=== PATIENT | male | born 1945 | race Caucasian/White ===

== ENCOUNTER 2021-02-04 11:39 | Outpatient (REF) | payer MEDICARE, OTHER, SELFPAY ==
[2021-02-04 13:59] LABS: MANUAL DIFF FLAG NO
[2021-02-04 14:12] LABS: Basophils Percent Auto 0.4 % (0-2); Eosinophils Absolute Auto 0.2 X10*3/uL (0.0-0.4); Hematocrit 36.1 % (42-52); Hemoglobin 11.5 g/dl (14.0-18.0); Imm Gran Abs Auto 0.07 X10*3/uL (0.00-0.03); Imm Gran Pct Auto 0.8 % (0.0-0.4); Lymphocytes Absolute Auto 3.3 X10*3/uL (1.2-4.9); Mean Corpuscular HGB Conc 31.9 g/dl (31.0-36.0); Mean Corpuscular Volume 97.3 fL (80-98); Monocytes Absolute Auto 0.5 X10*3/uL (0.1-1.2); Monocytes Percent Auto 5.4 % (2-11); Neutrophils Absolute Auto 4.4 X10*3/uL (2.0-8.3); Neutrophils Percent Auto 52.4 % (45-73); Platelet Count 231 X10*3/uL (160-400); Red Blood Count 3.71 X10*6/uL (4.60-5.80); Red Cell Distribution Width 14.5 % (11.0-16.0); White Blood Count 8.3 X10*3/uL (4.8-10.8)
[2021-02-04 14:41] LABS: Alanine Aminotransferase 17 U/L (0-40); Albumin Level 4.2 g/dL (3.5-5.0); Alkaline Phosphatase 52 U/L (39-117); Anion Gap 15 (12-20); Aspartate Amino Transferase 17 U/L (5-37); Bilirubin Total 0.3 mg/dL (0.0-1.0); Blood Urea Nitrogen 39 mg/dL (9-16); Calcium 8.5 mg/dL (8.4-10.2); Carbon Dioxide 18 mmol/L (22-29); Chloride 107 mmol/L (96-108); Estimated Glomerular Filt Rate 23; Glucose Random 158 mg/dL (60-115); Phosphorus 4.2 mg/dL (2.7-4.5); Potassium 5.4 mmol/L (3.3-5.1); Sodium 135 mmol/L (135-145); Total Protein 6.5 g/dL (6.5-8.0)
[2021-02-04 14:44] LABS: Glucose Urine UA 100 MG/DL (NEG); Leukocyte Esterase Urine 3+ (NEG); Nitrite Urine POS (NEG); PH 5.5 (5.0-8.0); Urine Blood TRACE (NEG); Urine Ketones NEG (NEG); Urine Protein NEG (NEG-TRACE)
[2021-02-04 14:48] LABS: Appearance Urine HAZY; Color Urine YELLOW
[2021-02-04 14:51] LABS: Total Protein Urine Random 19 mg/dL (<12)
[2021-02-04 15:23] LABS: Bacteria Urine 3+ /LPF; Renal Epithelial Cells Urine TRACE /LPF; Squamous Epithelial Cell Urine TRACE /LPF
[2021-02-05 11:26] LABS: Calcium (PTHI) 8.7 mg/dL (8.6-10.3); PTHI 70 pg/mL (14-64)
== END 2021-02-04 11:40 | disposition home or self-care (01) ==
LOC: HO.10HDL 11:39
PROVIDERS: Visit Provider Internal Medicine Hypertension Specialist
DX: N17.9 Acute kidney failure, unspecified (principal)
CPT/HCPCS: 36415; 80053; 81001; 83970; 84100; 84156; 85025

== ENCOUNTER 2023-09-11 13:23 | Outpatient (AMB) | payer MEDICARE, OTHER, SELFPAY ==
[2023-09-11 13:31] VITALS: BP 120/60; PULSE 45; O2SAT 98; BMI 26.4
--- NOTE | 2023-09-11 13:31 | HO.NEPHOV ---
HPI HPI Comments History of Present Illness Details Ronnie is 6-year-old man with history of stage 3 chronic kidney disease in the setting of atonic bladder requiring self catheterization for more than 8 years. In December of 2020 he sustained acute kidney injury with hyperkalemia. He was seen in follow-up for the same. Under time he was taking NSAIDs and after discontinuing NSAIDs the renal function improved with a baseline creatinine 1.6 mg/dL. Few weeks ago he had low heart rate and the labetalol was decreased from 200 mg b.i.d. down to 100 mg b.i.d.. Today he has no new complaints. Has a history of hematuria he was evaluated by Urology in [facility]. [facility] Medical History (Updated 09/11/23 @ 14:30 by Isael Guzman MD) Retinal detachment Urinary tract infection Sleep apnea Pulmonary embolism Hyperlipidemia Osteoarthrosis BPH w/o urinary obs/LUTS Hx of pulmonary embolus Glaucoma Essential hypertension Esophageal reflux Dysthymia Diabetes mellitus without complication, without long-term current use of insulin Depression Chronic kidney disease (CKD) Cataract Asthma Anxiety Anemia Surgical History (Updated 12/07/22 @ 11:45 by Ingrid Oseguera) History of total hip arthroplasty H/O hernia repair Vital Signs 09/11/23 13:31 Height 5 ft 10 in Weight 184 lb BMI 26.4 BP 120/60 Blood Pressure Location Rt brachial Position Sitting Pulse 45 L Pulse Source Pulse Oximeter Pulse Oximetry (%) 98 Oxygen Delivery Method Room Air Physical Exam Vital Signs: Last Vital Signs Pulse 45 L 09/11/23 13:31 BP 120/60 09/11/23 13:31 Pulse Ox 98 09/11/23 13:31 Oxygen Delivery Method Room Air 09/11/23 13:31 BMI result Body Mass Index 26.4 Const General: comfortable Nutritional Appearance: well nourished Orientation/consciousness: patient oriented x3 HEENT Head: No normal to inspection Mouth: moist mucous membranes Neck Neck: Yes supple and Yes no JVD Resp Auscultation: clear to auscultation bilaterally, no rales and rub present Cardio Jugular venous distension: no JVD Palpation: no palpable S3 and no palpable S4 Heart sounds: no rubs GI Palpation (GI): Soft to palpation and nontender Percussion: No Fluid wave present General: Yes no CVA tenderness Back/Spine/Pelvis Back: no CVA tenderness Skin General skin exam: no rashes or lesions noted Neuro General: patient oriented x3 Extrem General: Yes no pedal edema and No clubbing Results Reviewed Results Reviewed: All the labs were reviewed Assessment & Plan Assessment & Plan (1) Chronic kidney disease (CKD): Code(s): N18.9 - Chronic kidney disease, unspecified Plan: Ronnie has stage IV CKD. He has history of atonic bladder requiring self catheterization. Goal is to slow the progression of renal disease He should catheterize at least 3-4 times daily and avoid urinary retention. Continue to avoid nephrotoxic agents including NSAIDs. Will monitor renal function closely. (2) Edema: Code(s): R60.9 - Edema, unspecified Plan: Most likely due to the use of calcium channel blockers. Fluid status seems acceptable. He is on Lasix and we will continue the same. Again we discussed low-salt diet and he can keep his feet elevated while at rest. (3) Anemia: Code(s): D64.9 - Anemia, unspecified Plan: Due to underlying CKD. No absolute indication for Epogen Will follow hemoglobin and initiate Epogen as indicated. (4) Essential hypertension: Code(s): I10 - Essential (primary) hypertension Plan: Blood pressure is rather well controlled. He has bradycardia. Therefore I will stop labetalol 100 mg b.i.d.. Watch blood pressure and if systolic blood pressure stays above 140 mm I will consider increasing amlodipine or add a different agent. (5) Hyperkalemia: Code(s): E87.5 - Hyperkalemia Plan History of hyperkalemia in the setting of CKD and a unit retention. Recheck potassium again today. Stay on low-potassium diet. If potassium increases more than 5.6 I would add [facility] Orders: Orders Electrolytes Today D64.9 - Anemia, unspecified, N18.9 - Chronic kidney disease, unspecified Blood Urea Nitrogen Today D64.9 - Anemia, unspecified, N18.9 - Chronic kidney disease, unspecified Calcium Today D64.9 - Anemia, unspecified, N18.9 - Chronic kidney disease, unspecified PTHI Today D64.9 - Anemia, unspecified, N18.9 - Chronic kidney disease, unspecified Creatinine Today D64.9 - Anemia, unspecified, N18.9 - Chronic kidney disease, unspecified Complete Blood Count no Diff Today D64.9 - Anemia, unspecified, N18.9 - Chronic kidney disease, unspecified Coding Level of Care Code Est Pt Level 4 (05461) Diagnoses Chronic kidney disease (CKD) N18.9 Edema R60.9 Anemia D64.9 Essential hypertension I10 Hyperkalemia E87.5
== END 2023-09-11 13:48 | disposition home or self-care (01) ==
PROVIDERS: PCP Physician Assistant; Visit Provider Internal Medicine Hypertension Specialist
DX: I12.9 Hypertensive chronic kidney disease with stage 1 through stage 4 chronic kidney disease, or unspecified chronic kidney disease (principal); N18.4 Chronic kidney disease, stage 4 (severe); D63.1 Anemia in chronic kidney disease; E87.5 Hyperkalemia; R60.9 Edema, unspecified; R00.1 Bradycardia, unspecified
CPT/HCPCS: 99214

== ENCOUNTER → 2023-09-11 13:23 | Outpatient (BNVA) | payer MEDICARE, OTHER, SELFPAY | PROVIDERS: PCP Physician Assistant; Visit Provider Internal Medicine Hypertension Specialist | DX: I12.9 Hypertensive chronic kidney disease with stage 1 through stage 4 chronic kidney disease, or unspecified chronic kidney disease (principal); N18.9 Chronic kidney disease, unspecified; R60.9 Edema, unspecified; D64.9 Anemia, unspecified; E78.5 Hyperlipidemia, unspecified | CPT/HCPCS: 99212 ==

== ENCOUNTER 2023-11-06 13:03 | Outpatient (AMB) | payer MEDICARE, OTHER, SELFPAY ==
[2023-11-06 13:09] VITALS: BP 122/64; PULSE 41; O2SAT 98; BMI 26.5
--- NOTE | 2023-11-06 13:09 | HO.NEPHOV ---
HPI HPI Comments History of Present Illness Details Ronnie is 6-year-old man with history of stage 3 chronic kidney disease in the setting of atonic bladder requiring self catheterization for more than 8 years. In December of 2020 he sustained acute kidney injury with hyperkalemia. He was seen in follow-up for the same. Under time he was taking NSAIDs and after discontinuing NSAIDs the renal function improved with a baseline creatinine 1.6 mg/dL. Few weeks ago he had low heart rate and the labetalol was decreased from 200 mg b.i.d. down to 100 mg b.i.d.. Today he has no new complaints. Has a history of hematuria he was evaluated by Urology in [facility]. [facility] Medical History Retinal detachment Urinary tract infection Sleep apnea Pulmonary embolism Hyperlipidemia Osteoarthrosis BPH w/o urinary obs/LUTS Hx of pulmonary embolus Glaucoma Essential hypertension Esophageal reflux Dysthymia Diabetes mellitus without complication, without long-term current use of insulin Depression Chronic kidney disease (CKD) Cataract Asthma Anxiety Anemia Surgical History History of total hip arthroplasty H/O hernia repair Vital Signs 11/06/23 13:09 Height 5 ft 10 in Weight 185 lb BMI 26.5 BP 122/64 Blood Pressure Location Lt brachial Position Sitting Pulse 41 L Pulse Source Pulse Oximeter Pulse Oximetry (%) 98 Oxygen Delivery Method Room Air Intake Medication List - Last Reconciled 11/06/23 by Isael Guzman MD acetaminophen-codeine 300-30 mg tabs PO alprazolam 0.5 - 1 mg PO DAILY PRN amlodipine 5 mg PO DAILY blood sugar diagnostic (FreeStyle Lite Strips) As directed dorzolamide-timolol 22.3-6.8 mg/mL ophthalmic (eye) escitalopram oxalate 10 mg PO DAILY famotidine 20 mg PO DAILY furosemide 20 mg PO DAILY gabapentin mg PO glyburide 10 mg PO BID metformin 1,000 mg PO BID simvastatin 40 mg PO BEDTIME tamsulosin 0.4 mg PO DAILY trazodone 150 mg PO BEDTIME warfarin 0.5 - 1.5 mg PO DAILY Physical Exam Vital Signs: Last Vital Signs Pulse 41 L 11/06/23 13:09 BP 122/64 11/06/23 13:09 Pulse Ox 98 11/06/23 13:09 Oxygen Delivery Method Room Air 11/06/23 13:09 BMI result Body Mass Index 26.5 Const General: comfortable Nutritional Appearance: well nourished Orientation/consciousness: patient oriented x3 HEENT Head: No normal to inspection Mouth: moist mucous membranes Neck Neck: Yes supple and Yes no JVD Resp Auscultation: clear to auscultation bilaterally, no rales and rub present Cardio Jugular venous distension: no JVD Palpation: no palpable S3 and no palpable S4 Heart sounds: no rubs GI Palpation (GI): Soft to palpation and nontender Percussion: No Fluid wave present General: Yes no CVA tenderness Back/Spine/Pelvis Back: no CVA tenderness Skin General skin exam: no rashes or lesions noted Neuro General: patient oriented x3 Extrem General: No clubbing Right upper extremity: edema Assessment & Plan Assessment & Plan (1) Hyperkalemia: Code(s): E87.5 - Hyperkalemia (2) Chronic kidney disease (CKD): Code(s): N18.9 - Chronic kidney disease, unspecified Plan: Ronnie has stage IV CKD. He has history of atonic bladder requiring self catheterization. Goal is to slow the progression of renal disease He should catheterize at least 3-4 times daily and avoid urinary retention. Continue to avoid nephrotoxic agents including NSAIDs. Will monitor renal function closely. (3) Essential hypertension: Code(s): I10 - Essential (primary) hypertension Plan: Blood pressure is rather well controlled. He has bradycardia. Therefore I stopped labetalol 100 mg b.i.d. in Aug 2023 Watch blood pressure and if systolic blood pressure stays above 140 mm I will consider increasing amlodipine or add a different agent. (4) Edema: Code(s): R60.9 - Edema, unspecified Plan: Most likely due to the use of calcium channel blockers. Fluid status seems acceptable. He is on Lasix and we will continue the same. Again we discussed low-salt diet and he can keep his feet elevated while at rest. (5) Anemia: Code(s): D64.9 - Anemia, unspecified Plan: Due to underlying CKD. No absolute indication for Epogen Will follow hemoglobin and initiate Epogen as indicated. Plan History of hyperkalemia in the setting of CKD and a unit retention. Recheck potassium again today. Stay on low-potassium diet. If potassium increases more than 5.6 I would add [facility] Orders: Orders Electrolytes 4 Months E87.5 - Hyperkalemia, N18.9 - Chronic kidney disease, unspecified Blood Urea Nitrogen 4 Months E87.5 - Hyperkalemia, N18.9 - Chronic kidney disease, unspecified Creatinine 4 Months E87.5 - Hyperkalemia, N18.9 - Chronic kidney disease, unspecified Calcium 4 Months E87.5 - Hyperkalemia, N18.9 - Chronic kidney disease, unspecified Coding Level of Care Code Est Pt Level 4 (48226) Diagnoses Hyperkalemia E87.5 Chronic kidney disease (CKD) N18.9 Essential hypertension I10 Edema R60.9 Anemia D64.9 Results Reviewed Results Reviewed: Aug K 4.4 Cr 1.2 Nephrology Results: Hgb 11.5 g/dl (14.0-18.0) L 02/04/21 WBC 8.3 X10*3/uL (4.8-10.8) 02/04/21 Plt Count 231 X10*3/uL (160-400) 02/04/21 Sodium 135 mmol/L (135-145) 02/04/21 Potassium 5.4 mmol/L (3.3-5.1) H 02/04/21 Chloride 107 mmol/L (96-108) 02/04/21 Carbon Dioxide 18 mmol/L (22-29) L 02/04/21 BUN 39 mg/dL (9-16) H 02/04/21 Creatinine 2.67 mg/dL (0.5-1.4) H 02/04/21 Calcium 8.5 mg/dL (8.4-10.2) 02/04/21 Phosphorus 4.2 mg/dL (2.7-4.5) 02/04/21 PTH Intact 70 pg/mL (14-64) H 02/04/21 Urine Protein NEG MG/DL (NEG-TRACE) 02/04/21
== END 2023-11-06 13:28 | disposition home or self-care (01) ==
PROVIDERS: PCP Physician Assistant; Visit Provider Internal Medicine Hypertension Specialist
DX: E87.5 Hyperkalemia (principal); I12.9 Hypertensive chronic kidney disease with stage 1 through stage 4 chronic kidney disease, or unspecified chronic kidney disease; N18.9 Chronic kidney disease, unspecified; R60.9 Edema, unspecified; D64.9 Anemia, unspecified
CPT/HCPCS: 99214

== ENCOUNTER → 2023-11-06 13:03 | Outpatient (BNVA) | payer MEDICARE, OTHER, SELFPAY | PROVIDERS: PCP Physician Assistant; Visit Provider Internal Medicine Hypertension Specialist | DX: I12.9 Hypertensive chronic kidney disease with stage 1 through stage 4 chronic kidney disease, or unspecified chronic kidney disease (principal); N18.9 Chronic kidney disease, unspecified; E87.5 Hyperkalemia; R60.9 Edema, unspecified; D64.9 Anemia, unspecified | CPT/HCPCS: 99212 ==

== ENCOUNTER 2024-03-07 13:28 | Outpatient (AMB) | payer MEDICARE, OTHER, SELFPAY ==
[2024-03-07 13:45] VITALS: BP 138/62; PULSE 72; O2SAT 96; BMI 26.5
--- NOTE | 2024-03-07 13:45 | HO.NEPHOV_ITS ---
Vital Signs 03/07/24 13:45 Height 5 ft 10 in Weight 185 lb BMI 26.5 BP 138/62 Blood Pressure Location Lt brachial Position Sitting Pulse 72 Pulse Source Pulse Oximeter Pulse Oximetry (%) 96 Oxygen Delivery Method Room Air Intake Visit Reasons: Anemia May FU/ Confirmed Front Desk Agent Required: No Accompanied by: Self / Same As Patient Allergies prozac Allergy (Severe, Uncoded 11/06/23 13:13) Anxiety HPI Comments Details: Ronnie is 6-year-old man with history of stage 3 chronic kidney disease in the setting of atonic bladder requiring self catheterization for more than 8 years. In December of 2020 he sustained acute kidney injury with hyperkalemia. He was seen in follow-up for the same. Under time he was taking NSAIDs and after discontinuing NSAIDs the renal function improved with a baseline creatinine 1.6 mg/dL. Few weeks ago he had low heart rate and the labetalol was decreased from 200 mg b.i.d. down to 100 mg b.i.d.. Today he has no new complaints. Has a history of hematuria he was evaluated by Urology in [facility]. 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 Hx of pulmonary embolus Glaucoma Essential hypertension Esophageal reflux Dysthymia Diabetes mellitus without complication, without long-term current use of insulin Depression Chronic kidney disease (CKD) Cataract Asthma Anxiety Anemia Surgical History History of total hip arthroplasty H/O hernia repair Physical Exam Vital Signs: Last Vital Signs Pulse 72 03/07/24 13:45 BP 138/62 03/07/24 13:45 Pulse Ox 96 03/07/24 13:45 Oxygen Delivery Method Room Air 03/07/24 13:45 BMI result Body Mass Index 26.5 Const General: comfortable Nutritional Appearance: well nourished Orientation/consciousness: patient oriented x3 HEENT Head: No normal to inspection Mouth: moist mucous membranes Neck Neck: Yes supple and Yes no JVD Resp Auscultation: clear to auscultation bilaterally, no rales and rub present Cardio Jugular venous distension: no JVD Palpation: no palpable S3 and no palpable S4 Heart sounds: no rubs GI Palpation (GI): Soft to palpation and nontender Percussion: No Fluid wave present General: Yes no CVA tenderness Back/Spine/Pelvis Back: no CVA tenderness Skin General skin exam: no rashes or lesions noted Neuro General: patient oriented x3 Extrem General: No clubbing Right upper extremity: edema Results Reviewed Results Reviewed: As of 03/04/2024 Creatinine 1.2 EGFR 57 mL/minute Nephrology Results: Hgb 11.5 g/dl (14.0-18.0) L 02/04/21 WBC 8.3 X10*3/uL (4.8-10.8) 02/04/21 Plt Count 231 X10*3/uL (160-400) 02/04/21 Sodium 135 mmol/L (135-145) 02/04/21 Potassium 5.4 mmol/L (3.3-5.1) H 02/04/21 Chloride 107 mmol/L (96-108) 02/04/21 Carbon Dioxide 18 mmol/L (22-29) L 02/04/21 BUN 39 mg/dL (9-16) H 02/04/21 Creatinine 2.67 mg/dL (0.5-1.4) H 02/04/21 Calcium 8.5 mg/dL (8.4-10.2) 02/04/21 Phosphorus 4.2 mg/dL (2.7-4.5) 02/04/21 PTH Intact 70 pg/mL (14-64) H 02/04/21 Urine Protein NEG MG/DL (NEG-TRACE) 02/04/21 Assessment & Plan Assessment & Plan (1) Hyperkalemia: Code(s): E87.5 - Hyperkalemia Category: Medical (2) Chronic kidney disease (CKD): Code(s): N18.9 - Chronic kidney disease, unspecified Category: Medical Plan: Ronnie has stage IV CKD. He has history of atonic bladder requiring self catheterization. Goal is to slow the progression of renal disease He should catheterize at least 3-4 times daily and avoid urinary retention. Continue to avoid nephrotoxic agents including NSAIDs. Will monitor renal function closely. (3) Essential hypertension: Code(s): I10 - Essential (primary) hypertension Category: Medical Plan: Blood pressure is rather well controlled. He had bradycardia. Therefore I stopped labetalol 100 mg b.i.d. in Aug 2023 Watch blood pressure and if systolic blood pressure stays above 140 mm I will consider increasing amlodipine or add a different agent. (4) Edema: Code(s): R60.9 - Edema, unspecified Category: Medical Plan: Most likely due to the use of calcium channel blockers. Fluid status seems acceptable. He is on Lasix and we will continue the same. Again we discussed low-salt diet and he can keep his feet elevated while at rest. (5) Anemia: Code(s): D64.9 - Anemia, unspecified Category: Medical Plan: Due to underlying CKD. No absolute indication for Epogen Will follow hemoglobin and initiate Epogen as indicated. Plan History of hyperkalemia in the setting of CKD and a uninary retention. Repeat potassium has been normal Stay on low-potassium diet. If potassium increases more than 5.6 I would add [facility] Orders: Orders Basic Metabolic Panel 6 Months N18.9 - Chronic kidney disease, unspecified Coding Level of Care Code Est Pt Level 4 (31125) Diagnoses Hyperkalemia E87.5 Chronic kidney disease (CKD) N18.9 Essential hypertension I10 Edema R60.9 Anemia D64.9
== END 2024-03-07 14:08 | disposition home or self-care (01) ==
LOC: HO.HKA 13:28
PROVIDERS: PCP Physician Assistant; Visit Provider Internal Medicine Hypertension Specialist
DX: I12.9 Hypertensive chronic kidney disease with stage 1 through stage 4 chronic kidney disease, or unspecified chronic kidney disease (principal); N18.4 Chronic kidney disease, stage 4 (severe); E87.5 Hyperkalemia; R60.9 Edema, unspecified; D64.9 Anemia, unspecified
CPT/HCPCS: 99214

== ENCOUNTER → 2024-03-07 13:28 | Outpatient (BNVA) | payer MEDICARE, OTHER, SELFPAY | PROVIDERS: PCP Physician Assistant; Visit Provider Internal Medicine Hypertension Specialist | DX: I12.9 Hypertensive chronic kidney disease with stage 1 through stage 4 chronic kidney disease, or unspecified chronic kidney disease (principal); N18.9 Chronic kidney disease, unspecified; E87.5 Hyperkalemia; R60.9 Edema, unspecified; D64.9 Anemia, unspecified | CPT/HCPCS: 99212 ==

== ENCOUNTER 2024-09-09 14:13 | Outpatient (AMB) | payer MEDICARE, OTHER, SELFPAY ==
[2024-09-09 14:15] VITALS: BP 150/68; PULSE 61; O2SAT 95; BMI 27.1
--- NOTE | 2024-09-09 14:15 | HO.NEPHOV_ITS ---
Vital Signs 09/09/24 14:15 Height 5 ft 10 in Weight 189 lb BMI 27.1 BP 150/68 H Blood Pressure Location Lt brachial Position Sitting Pulse 61 Pulse Source Pulse Oximeter Pulse Oximetry (%) 95 Oxygen Delivery Method Room Air Intake Visit Reasons: Anemia/ 6 MO FU/ Conf Painting Technician Required: No Accompanied by: TURN SUPERVISOR Allergies prozac Allergy (Severe, Uncoded 11/06/23 13:13) Anxiety Medication List - Last Reconciled 09/09/24 by Isael Guzman MD acetaminophen-codeine 300-30 mg 2 tabs PO DAILY PRN albuterol sulfate 90 mcg/actuation inhalation alprazolam 0.5 - 1 mg PO DAILY PRN amlodipine 10 mg PO DAILY blood sugar diagnostic (FreeStyle Lite Strips) As directed dorzolamide-timolol 22.3-6.8 mg/mL ophthalmic (eye) escitalopram oxalate 20 mg PO DAILY escitalopram oxalate 20 mg PO DAILY famotidine 20 mg PO DAILY finasteride 5 mg PO DAILY fluticasone propion-salmeterol 100-50 mcg/dose 1 ea inhalation BID furosemide 20 mg PO DAILY gabapentin 200 mg PO TID glyburide 10 mg PO BID hydralazine 25 mg PO BID metformin 1,000 mg PO BID simvastatin 20 mg PO BEDTIME tamsulosin 0.4 mg PO DAILY trazodone 150 mg PO BEDTIME warfarin 0.5 - 1.5 mg PO DAILY HPI Comments Details: Ronnie is 6-year-old man with history of stage 3 chronic kidney disease in the setting of atonic bladder requiring self catheterization for more than 8 years. In December of 2020 he sustained acute kidney injury with hyperkalemia. He was seen in follow-up for the same. Under time he was taking NSAIDs and after discontinuing NSAIDs the renal function improved with a baseline creatinine 1.6 mg/dL. Few weeks ago he had low heart rate and the labetalol was decreased from 200 mg b.i.d. down to 100 mg b.i.d.. Today he has no new complaints. Has a history of hematuria he was evaluated by Urology in [facility]. 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 Hx of pulmonary embolus Glaucoma Essential hypertension Esophageal reflux Dysthymia Diabetes mellitus without complication, without long-term current use of insulin Depression Chronic kidney disease (CKD) Cataract Asthma Anxiety Anemia Surgical History History of total hip arthroplasty H/O hernia repair Physical Exam Vital Signs: Last Vital Signs Pulse 61 09/09/24 14:15 BP 150/68 H 09/09/24 14:15 Pulse Ox 95 09/09/24 14:15 Oxygen Delivery Method Room Air 09/09/24 14:15 BMI result Body Mass Index 27.1 Const General: comfortable Nutritional Appearance: well nourished Orientation/consciousness: patient oriented x3 HEENT Head: No normal to inspection Mouth: moist mucous membranes Neck Neck: Yes supple and Yes no JVD Resp Auscultation: clear to auscultation bilaterally, no rales and rub present Cardio Jugular venous distension: no JVD Palpation: no palpable S3 and no palpable S4 Heart sounds: no rubs GI Palpation (GI): Soft to palpation and nontender Percussion: No Fluid wave present General: Yes no CVA tenderness Back/Spine/Pelvis Back: no CVA tenderness Skin General skin exam: no rashes or lesions noted Neuro General: patient oriented x3 Extrem General: No clubbing Right upper extremity: edema Results Reviewed Nephrology Results: Hgb 11.5 g/dl (14.0-18.0) L 02/04/21 WBC 8.3 X10*3/uL (4.8-10.8) 02/04/21 Plt Count 231 X10*3/uL (160-400) 02/04/21 Sodium 135 mmol/L (135-145) 02/04/21 Potassium 5.4 mmol/L (3.3-5.1) H 02/04/21 Chloride 107 mmol/L (96-108) 02/04/21 Carbon Dioxide 18 mmol/L (22-29) L 02/04/21 BUN 39 mg/dL (9-16) H 02/04/21 Creatinine 2.67 mg/dL (0.5-1.4) H 02/04/21 Calcium 8.5 mg/dL (8.4-10.2) 02/04/21 Phosphorus 4.2 mg/dL (2.7-4.5) 02/04/21 PTH Intact 70 pg/mL (14-64) H 02/04/21 Urine Protein NEG MG/DL (NEG-TRACE) 02/04/21 Assessment & Plan Assessment & Plan (1) Hyperkalemia: Code(s): E87.5 - Hyperkalemia Category: Medical (2) Chronic kidney disease (CKD): Comment: Renal function at baseline Code(s): N18.9 - Chronic kidney disease, unspecified Category: Medical Plan: Ronnie has stage IV CKD. He has history of atonic bladder requiring self catheterization. Goal is to slow the progression of renal disease He should catheterize at least 3-4 times daily and avoid urinary retention. Continue to avoid nephrotoxic agents including NSAIDs. Will monitor renal function closely. (3) Essential hypertension: Code(s): I10 - Essential (primary) hypertension Category: Medical Plan: Blood pressure is well controlled. He had bradycardia. Therefore I stopped labetalol 100 mg b.i.d. in Aug 2023 BP better controlled after increasing Amlodipine (4) Edema: Code(s): R60.9 - Edema, unspecified Category: Medical Plan: Most likely due to the use of calcium channel blockers. Fluid status seems acceptable. He is on Lasix and we will continue the same. . (5) Anemia: Code(s): D64.9 - Anemia, unspecified Category: Medical Plan: Due to underlying CKD. No absolute indication for Epogen Will follow hemoglobin and initiate Epogen as indicated. HCT ordered Plan History of hyperkalemia in the setting of CKD and a uninary retention. Repeat potassium has been normal Stay on low-potassium diet. If potassium increases more than 5.6 I would add [facility] Coding Level of Care Code Est Pt Level 4 (20645) Diagnoses Hyperkalemia E87.5 Chronic kidney disease (CKD) N18.9 Essential hypertension I10 Edema R60.9 Anemia D64.9
== END 2024-09-09 14:36 | disposition home or self-care (01) ==
PROVIDERS: PCP Physician Assistant; Visit Provider Internal Medicine Hypertension Specialist
DX: E87.5 Hyperkalemia (principal); I12.9 Hypertensive chronic kidney disease with stage 1 through stage 4 chronic kidney disease, or unspecified chronic kidney disease; N18.30 Chronic kidney disease, stage 3 unspecified; D63.1 Anemia in chronic kidney disease; R60.9 Edema, unspecified
CPT/HCPCS: 99214

== ENCOUNTER → 2024-09-09 14:13 | Outpatient (BNVA) | payer MEDICARE, OTHER, SELFPAY | PROVIDERS: PCP Physician Assistant; Visit Provider Internal Medicine Hypertension Specialist | DX: I12.9 Hypertensive chronic kidney disease with stage 1 through stage 4 chronic kidney disease, or unspecified chronic kidney disease (principal); N18.4 Chronic kidney disease, stage 4 (severe); D63.1 Anemia in chronic kidney disease; N32.89 Other specified disorders of bladder; E87.5 Hyperkalemia; R60.9 Edema, unspecified; R33.9 Retention of urine, unspecified | CPT/HCPCS: 99212 ==

== ENCOUNTER 2025-04-10 13:05 | Outpatient (AMB) | payer MEDICARE, OTHER, SELFPAY ==
--- NOTE | 2025-04-10 13:10 | HO.NEPHOV ---
Vital Signs 04/10/25 13:11 Height 5 ft 10 in Weight 193 lb BMI 27.7 BP 130/62 Blood Pressure Location Lt brachial Position Sitting Pulse 64 Pulse Source Pulse Oximeter Pulse Oximetry (%) 97 Oxygen Delivery Method Room Air Intake Visit Reasons: 6mon follow up/ Conf Garden Machinery Mechanic Required: No Accompanied by: Self / Same As Patient Allergies prozac Allergy (Severe, Uncoded 11/06/23 13:13) Anxiety Medication List - Last Reconciled 04/10/25 by Isael Guzman MD acetaminophen-codeine 300-30 mg 2 tabs PO DAILY PRN albuterol sulfate 90 mcg/actuation inhalation alprazolam 0.5 - 1 mg PO DAILY PRN amlodipine 10 mg PO DAILY blood sugar diagnostic (FreeStyle Lite Strips) As directed buspirone 5 mg PO TID dorzolamide-timolol 22.3-6.8 mg/mL ophthalmic (eye) escitalopram oxalate 20 mg PO DAILY escitalopram oxalate 20 mg PO DAILY famotidine 20 mg PO DAILY finasteride 5 mg PO DAILY fluticasone propion-salmeterol 100-50 mcg/dose 1 ea inhalation BID furosemide 20 mg PO DAILY gabapentin 200 mg PO TID glipizide ER 10 mg PO DAILY glyburide 10 mg PO BID hydralazine 25 mg PO BID linagliptin (Tradjenta) 5 mg PO DAILY losartan 25 mg PO DAILY metformin 1,000 mg PO BID simvastatin 20 mg PO BEDTIME tamsulosin 0.4 mg PO DAILY trazodone 150 mg PO BEDTIME warfarin 0.5 - 1.5 mg PO DAILY HPI Comments Details: Ronnie is 79-year-old man with history of stage 3 chronic kidney disease in the setting of atonic bladder requiring self catheterization for more than 8 years. In December of 2020 he sustained acute kidney injury with hyperkalemia. He was seen in follow-up for the same. Under time he was taking NSAIDs and after discontinuing NSAIDs the renal function improved with a baseline creatinine 1.6 mg/dL. Few weeks ago he had low heart rate and the labetalol was decreased from 200 mg b.i.d. down to 100 mg b.i.d.. Today he has no new complaints. Has a history of hematuria he was evaluated by Urology in [facility]. 03/07/24;Doing well;Self catheterizes 3- 4x a day;No issues 09/09/24:Feels tired.Blood sugar has been erratic;More leg edema ;No dyspnea 04/10/25 79-year-old male presenting for follow-up management of CKD ;h/o Atonic bladder ,self catheterizes 3-4 x a day; seen by urology recently; now under the care of Dr. Nicolle Abraham at [facility]. The patient has a history of occasional urinary tract infections, with the most recent occurring late last year. These are associated with his need for intermittent self-catheterization. [facility] Medical History Retinal detachment Urinary tract infection Sleep apnea Pulmonary embolism Hyperlipidemia Osteoarthrosis BPH w/o urinary obs/LUTS Hx of pulmonary embolus Glaucoma Essential hypertension Esophageal reflux Dysthymia Diabetes mellitus without complication, without long-term current use of insulin Depression Chronic kidney disease (CKD) Cataract Asthma Anxiety Anemia Surgical History History of total hip arthroplasty H/O hernia repair Physical Exam Vital Signs: Last Vital Signs Pulse 64 04/10/25 13:11 BP 130/62 04/10/25 13:11 Pulse Ox 97 04/10/25 13:11 Oxygen Delivery Method Room Air 04/10/25 13:11 BMI result Body Mass Index 27.7 Const General: comfortable Nutritional Appearance: well nourished Orientation/consciousness: patient oriented x3 HEENT Head: No normal to inspection Mouth: moist mucous membranes Neck Neck: Yes supple and Yes no JVD Resp Auscultation: clear to auscultation bilaterally and no rales Cardio Jugular venous distension: no JVD Palpation: no palpable S3 and no palpable S4 Heart sounds: no rubs GI Palpation (GI): Soft to palpation and nontender Percussion: No Fluid wave present General: Yes no CVA tenderness Back/Spine/Pelvis Back: no CVA tenderness Skin General skin exam: no rashes or lesions noted Neuro General: patient oriented x3 Extrem General: No clubbing Right upper extremity: edema Results Reviewed Nephrology Results: Hgb 11.5 g/dl (14.0-18.0) L 02/04/21 WBC 8.3 X10*3/uL (4.8-10.8) 02/04/21 Plt Count 231 X10*3/uL (160-400) 02/04/21 Sodium 135 mmol/L (135-145) 02/04/21 Potassium 5.4 mmol/L (3.3-5.1) H 02/04/21 Chloride 107 mmol/L (96-108) 02/04/21 Carbon Dioxide 18 mmol/L (22-29) L 02/04/21 BUN 39 mg/dL (9-16) H 02/04/21 Creatinine 2.67 mg/dL (0.5-1.4) H 02/04/21 Calcium 8.5 mg/dL (8.4-10.2) 02/04/21 Phosphorus 4.2 mg/dL (2.7-4.5) 02/04/21 PTH Intact 70 pg/mL (14-64) H 02/04/21 Urine Protein NEG MG/DL (NEG-TRACE) 02/04/21 Assessment & Plan Assessment & Plan (1) Hyperkalemia: Code(s): E87.5 - Hyperkalemia Category: Medical (2) Chronic kidney disease (CKD): Comment: Renal function at baseline Code(s): N18.9 - Chronic kidney disease, unspecified Category: Medical Plan: Ronnie has stage IV CKD. He has history of atonic bladder requiring self catheterization. Goal is to slow the progression of renal disease He should catheterize at least 3-4 times daily and avoid urinary retention. Continue to avoid nephrotoxic agents including NSAIDs. Will monitor renal function closely.- labs ordered (3) Essential hypertension: Code(s): I10 - Essential (primary) hypertension Category: Medical Plan: Blood pressure is well controlled. He had bradycardia. Therefore I stopped labetalol 100 mg b.i.d. in Aug 2023 BP better controlled after increasing Amlodipine (4) Edema: Code(s): R60.9 - Edema, unspecified Category: Medical Plan: Most likely due to the use of calcium channel blockers. Fluid status seems acceptable. He is on Lasix and we will continue the same. . (5) Anemia: Code(s): D64.9 - Anemia, unspecified Category: Medical Plan: Due to underlying CKD. No absolute indication for Epogen Will follow hemoglobin and initiate Epogen as indicated. HCT ordered Plan History of hyperkalemia in the setting of CKD and a uninary retention. Repeat potassium has been normal Stay on low-potassium diet. If potassium increases more than 5.6 I would add Flavia Orders: Orders Basic Metabolic Panel 6 Months N18.9 - Chronic kidney disease, unspecified Coding Level of Care Code Est Pt Level 4 (26761) Diagnoses Hyperkalemia E87.5 Chronic kidney disease (CKD) N18.9 Essential hypertension I10 Edema R60.9 Anemia D64.9
[2025-04-10 13:11] VITALS: BP 130/62; PULSE 64; O2SAT 97; BMI 27.7
--- OUTSIDE RECORDS SUMMARY | 2025-04-10 15:14 | XMS_ITS | Clinical Summary ---
Author Organization [facility] Address [address] [place] [address] Phone Care Team Providers Care Horse Racer Name Role Phone JASWINDER Piper Jr., Paul A Primary Care Provider [phone]- [phone] Allergies Active Allergy Reactions Criticality Noted Date Comments Fluoxetine 02/03/2021 Medications fluticasone-salm eterol (ADVAIR DISKUS) 250-50 MCG/DOSE diskus inhaler Inhale 1 puff 2 (two) times a day Rinse mouth with water after use to reduce aftertaste and incidence of candidiasis. Do not swallow. Active Albuterol Sulfate 108 (90 Base) MCG/ACT aerosol powder Inhale Activ e ALPRAZolam (XANAX) 0.5 MG tablet Take 0.5 mg by mouth 2 (two) times a day if needed for anxiety Active Cyanocobalamin (Vitamin B-12) 1000 MCG/15ML liquid Take 1 mL by mouth Active desonide (DESOWEN) 0.05 % cream Apply topically 2 (two) times a day Active dorzolamide-good lol (COSOPT) 22.3-6.8 MG/ML ophthalmic solution 1 drop 2 (two) times a day Active famotidine (PEPCID) 20 MG tablet Take 20 mg by mouth 1 (one) time each day Active gabapentin (NEURONTIN) 100 MG capsule Take 200 mg by mouth in the morning and 200 mg in the evening and 200 mg before bedtime. 2 caps am 2 caps evening and 2 caps midday . Active glyBURIDE (DIABETA) 5 MG tablet Take 10 mg by mouth 2 (two) times a day Active metFORMIN (GLUCOPHAGE) 500 MG tablet Take 1,000 mg by mouth 2 (two) times a day with meals Active simvastatin (ZOCOR) 40 MG tablet Take 20 mg by mouth every night Active tamsulosin (FLOMAX) 0.4 MG 24 hr capsule Take 0.4 mg by mouth 1 (one) time each day Active traZODone (DESYREL) 150 MG tablet Take 150 mg by mouth every night Active ascorbic acid (VITAMIN C) 500 MG tablet Take 500 mg by mouth 1 (one) time each day Active Cholecalciferol (Vitamin D) 125 MCG (5000 UT) capsule Take 1 tablet by mouth 1 (one) time each day Active warfarin (COUMADIN) 1 MG tablet Take 1.5-2 mg by mouth 1 (one) time each day Take as directed per After Visit Summary. Active CRANBERRY CONCENTRATE PO Take 1-2 tablets by mouth 1 (one) time each day Active psyllium (METAMUCIL) 58.6 % packet Take 1 packet by mouth 1 (one) time each day Active Multiple Vitamin (multivitamin) tablet Take 1 tablet by mouth 1 (one) time each day Active amLODIPine (NORVASC) 5 MG tablet Take 5 mg by mouth 1 (one) time each day 1 Active furosemide (LASIX) 20 MG tablet Take 20 mg by mouth 1 (one) time each day 1 Active acetaminophen-co deine (TYLENOL #3) 300-30 MG per tablet TAKE 1/2 TO 1 TABLET BY MOUTH EVERY 8 HOURS NEEDED FOR PAIN 1 Active ciprofloxacin (CIPRO) 500 MG tablet Take 500 mg by mouth in the morning and 500 mg in the evening. 2 Active labetalol (NORMODYNE) 200 MG tablet TAKE 1 TABLET(200 MG) BY MOUTH TWICE DAILY 180 tablet 3 2 Active labetalol (NORMODYNE) 100 MG tablet TAKE 1 TABLET(100 MG) BY MOUTH TWICE DAILY 60 tablet 3 3 Active finasteride (PROSCAR) 5 MG tablet Take 5 mg by mouth 1 (one) time each day Do not crush, chew, or split. Active Active Problems Problem Noted Date Diagnosed Date Stage 3 chronic kidney disease 02/03/2021 Family History Medical History Relation Comments Diabetes Brother Heart disease Father Relation Status Comments Brother Father Social History Tobacco Use Types Packs/Day Years Used Date Smoking Tobacco: Former Cigarettes 1 10 0 1957 - 1967 Smokeless Tobacco: Never Tobacco Cessation:Counseling Given: Not Answered Alcohol Use Standard Drinks/Week Comments Not Currently 4 (1 standard drink = 0.6 oz pur e alcohol) Sex and Gender Information Value Date Recorded Sex Assigned at Not on file Legal Sex Male 8:29 AM EDT Gender Identity Not on file Sexual Orientation Not on file Last Filed Vital Signs Vital Sign Reading Time Taken Comments Blood Pressure 122/70 02/27/2023 12:47 PM EDT Pulse 50 02/27/2023 12:47 PM EDT Temperature - - Respiratory Rate - - Oxygen Saturation 97% 02/27/2023 12:47 PM EDT Inhaled Oxygen Concentration - - Weight 88.1 kg (194 lb 3.2 oz) 02/27/2023 12:47 PM EDT Height - - Body Mass Index - - Plan of Treatment Health Maintenance Due Date Last Done Comments Influenza Vaccine (Season Ended) 2025 Pneumococcal Vaccine: 50+ Years Completed 06/22/2017, 04/20/2015, 06/21/2004 Pneumococcal Vaccine: Peds (0 to 5 Years) and At-Risk Patients (6 to 49 Years) Discontinued 06/22/2017, 04/20/2015, 06/21/2004 Hepatitis B Vaccine Aged Out No longe r eligible based on patient's age to complete this topic [place] [address] [place] [id number] Medicare [facility] [id number] [place] [id number] Medicare [facility] Care Teams Horse Racer Relationship Specialty Start Date End Date Ronnie Piper Jr., PA [address] [place] [id number] PCP - General 01/29/21
== END 2025-04-10 13:29 | disposition home or self-care (01) ==
LOC: HO.HKA 13:05
PROVIDERS: PCP Physician Assistant; Visit Provider Internal Medicine Hypertension Specialist
DX: E87.5 Hyperkalemia (principal); I12.9 Hypertensive chronic kidney disease with stage 1 through stage 4 chronic kidney disease, or unspecified chronic kidney disease; N18.9 Chronic kidney disease, unspecified; R60.9 Edema, unspecified; D64.9 Anemia, unspecified
CPT/HCPCS: 99214

== ENCOUNTER → 2025-04-10 13:05 | Outpatient (BNVA) | payer MEDICARE, OTHER, SELFPAY | PROVIDERS: PCP Physician Assistant; Visit Provider Internal Medicine Hypertension Specialist | DX: I12.9 Hypertensive chronic kidney disease with stage 1 through stage 4 chronic kidney disease, or unspecified chronic kidney disease (principal); N18.9 Chronic kidney disease, unspecified; E87.5 Hyperkalemia; R60.9 Edema, unspecified; D64.9 Anemia, unspecified | CPT/HCPCS: 99212 ==

== ENCOUNTER 2025-08-28 11:46 | Outpatient (AMB) | payer MEDICARE, OTHER, SELFPAY ==
[2025-08-28 11:48] VITALS: BP 150/70; PULSE 70; O2SAT 96; BMI 27.4
--- NOTE | 2025-08-28 11:48 | HO.NEPHOV ---
Vital Signs 08/28/25 11:48 Height 5 ft 10 in Weight 191 lb BMI 27.4 BP 150/70 H Blood Pressure Location Lt brachial Position Sitting Pulse 70 Pulse Source Pulse Oximeter Pulse Oximetry (%) 96 Oxygen Delivery Method Room Air Intake Visit Reasons: Possible UTi, [facility] has labs,conf. Chief Minister Required: No Accompanied by: Self / Same As Patient Allergies prozac Allergy (Severe, Uncoded 11/06/23 13:13) Anxiety Medication List - Last Reconciled 08/28/25 by Isael Guzman MD acetaminophen-codeine 300-30 mg 2 tabs PO DAILY PRN albuterol sulfate 90 mcg/actuation inhalation alprazolam 0.5 - 1 mg PO DAILY PRN amlodipine 10 mg PO DAILY apixaban (Eliquis) 2.5 mg PO BID blood sugar diagnostic (FreeStyle Lite Strips) As directed buspirone 10 mg PO TID dorzolamide-timolol 22.3-6.8 mg/mL ophthalmic (eye) escitalopram oxalate 20 mg PO DAILY famotidine 20 mg PO DAILY finasteride 5 mg PO DAILY fluticasone propion-salmeterol 100-50 mcg/dose 1 ea inhalation BID furosemide 20 mg PO DAILY gabapentin 200 mg PO TID glipizide ER 10 mg PO DAILY hydralazine 25 mg PO BID linagliptin (Tradjenta) 5 mg PO DAILY losartan 25 mg PO DAILY metformin 1,000 mg PO BID simvastatin 20 mg PO BEDTIME tamsulosin 0.4 mg PO DAILY trazodone 150 mg PO BEDTIME HPI Comments Details: Ronnie is 79-year-old man with history of stage 3 chronic kidney disease in the setting of atonic bladder requiring self catheterization for more than 8 years. In December of 2020 he sustained acute kidney injury with hyperkalemia. He was seen in follow-up for the same. Under time he was taking NSAIDs and after discontinuing NSAIDs the renal function improved with a baseline creatinine 1.6 mg/dL. Few weeks ago he had low heart rate and the labetalol was decreased from 200 mg b.i.d. down to 100 mg b.i.d.. Today he has no new complaints. Has a history of hematuria he was evaluated by Urology in [facility]. 03/07/24;Doing well;Self catheterizes 3- 4x a day;No issues 09/09/24:Feels tired.Blood sugar has been erratic;More leg edema ;No dyspnea 04/10/25 79-year-old male presenting for follow-up management of CKD ;h/o Atonic bladder ,self catheterizes 3-4 x a day; seen by urology recently; now under the care of Dr. Nicolle Abraham at [facility]. The patient has a history of occasional urinary tract infections, with the most recent occurring late last year. These are associated with his need for intermittent self-catheterization. 08/28/25 Terra is a recent episodes of UTI. He was initially treated with Bactrim. Subsequently treated with Augmentin. 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 Lungs entry equal no rales. Heart S1-S2 heard no gallop or rub. Abdomen soft nontender. Neuro alert awake oriented. No asterixis. Extremities no edema. Results Reviewed Nephrology Results: Hgb, (14.0-18.0) 11.5 g/dl L 02/04/21 WBC, (4.8-10.8) 8.3 X10*3/uL 02/04/21 Plt Count, (160-400) 231 X10*3/uL 02/04/21 Sodium, (135-145) 135 mmol/L 02/04/21 Potassium, (3.3-5.1) 5.4 mmol/L H 02/04/21 Chloride, (96-108) 107 mmol/L 02/04/21 Carbon Dioxide, (22-29) 18 mmol/L L 02/04/21 BUN, (9-16) 39 mg/dL H 02/04/21 Creatinine, (0.5-1.4) 2.67 mg/dL H 02/04/21 Calcium, (8.4-10.2) 8.5 mg/dL 02/04/21 Phosphorus, (2.7-4.5) 4.2 mg/dL 02/04/21 PTH Intact, (14-64) 70 pg/mL H 02/04/21 Urine Protein, (NEG-TRACE) NEG MG/DL 02/04/21 Assessment & Plan Assessment & Plan (1) Hyperkalemia: Code(s): E87.5 - Hyperkalemia Category: Medical (2) Chronic kidney disease (CKD): Comment: Renal function at baseline Code(s): N18.9 - Chronic kidney disease, unspecified Category: Medical Plan: Ronnie has stage IV CKD. He has history of atonic bladder requiring self catheterization. Goal is to slow the progression of renal disease He should catheterize at least 3-4 times daily and avoid urinary retention. Continue to avoid nephrotoxic agents including NSAIDs. Will monitor renal function closely.- labs ordered (3) Essential hypertension: Code(s): I10 - Essential (primary) hypertension Category: Medical Plan: Blood pressure is well controlled. He had bradycardia. Therefore I stopped labetalol 100 mg b.i.d. in Aug 2023 BP better controlled after increasing Amlodipine (4) Edema: Code(s): R60.9 - Edema, unspecified Category: Medical Plan: Most likely due to the use of calcium channel blockers. Fluid status seems acceptable. He is on Lasix and we will continue the same. . (5) Anemia: Code(s): D64.9 - Anemia, unspecified Category: Medical Plan: Due to underlying CKD. No absolute indication for Epogen Will follow hemoglobin and initiate Epogen as indicated. HCT ordered Plan History of hyperkalemia in the setting of CKD and a uninary retention. Repeat potassium has been normal Stay on low-potassium diet. If potassium increases more than 5.6 I would add [facility] Orders: Orders Basic Metabolic Panel Today N18.9 - Chronic kidney disease, unspecified Complete Blood Count no Diff 4 Months N18.9 - Chronic kidney disease, unspecified Basic Metabolic Panel 4 Months N18.9 - Chronic kidney disease, unspecified Complete Blood Count no Diff Today N18.9 - Chronic kidney disease, unspecified Coding Level of Care Code Est Pt Level 4 (14140) Diagnoses Hyperkalemia E87.5 Chronic kidney disease (CKD) N18.9 Essential hypertension I10 Edema R60.9 Anemia D64.9
--- OUTSIDE RECORDS SUMMARY | 2025-08-28 14:45 | XMS_ITS | Clinical Summary ---
Author Organization [facility] Address [address] [place] [address] Phone Care Team Providers Care Associate Professor Of Geology Name Role Phone JASWINDER Piper Jr., Paul A Primary Care Provider [phone]- [phone] Allergies Active Allergy Reactions Criticality Noted Date [...] Due Date Last Done Comments Influenza Vaccine (#1) 2025 Pneumococcal Vaccine: 50+ Years Completed 06/22/2017, 04/20/2015, 06/21/2004 Pneumococcal Vaccine: Peds (0 to 5 Years) and At-Risk Patients (6 to 49 Years) Discontinued 06/22/2017, 04/20/2015, 06/21/2004 Hepatitis B Vaccine Aged Out No longe r eligible based on patient's age to complete this topic [place] [address] [address] [place] [id number] Medicare [facility] [id number] [place] [id number] Medicare [facility] Care Teams Associate Professor Of Geology Relationship Specialty Start Date End Date Ronnie Piper Jr., PA [address] [place] [phone] PCP - General 01/29/21
--- OUTSIDE RECORDS SUMMARY | 2025-08-28 14:45 | XMS_ITS | Clinical Summary ---
Author Organization [facility] Address [address] [place], [place] [id number] Phone Care Team Providers Care Wharfinger Chief Name Role Phone Ronnie Piper Primary Care Provider [phone]- [phone] Social History Tobacco Use Types Packs/Day Years Used Date Smoking Tobacco: Never Assessed Education Answer Date Recorded Are you interested in more education? Not on jeff e 02/24/2023 Are you concerned about learning? Not on file 02/24/2023 No 02/24/2023 No 02/24/2023 Digital Access Answer Date Recorded No 03/27/2023 No 03/27/2023 No 03/27/2023 Reliable internet access at home? Not on file 03/27/2023 Device with a working camera? Not on file Sex and Gender Information Value Date Recorded Sex Assigned at Not on file Legal Sex Male 10:10 PM EDT Gender Identity Not on file Sexual Orientation Not on file Plan of Treatment Not on file Medical Devices Not on file Insurance [address] [place] [phone] MEDICARE PART A & B [facility] MEDICARE SUPPLEMENT MEDICARE PART A & B [facility] MEDICARE SUPPLEMENT MEDICARE PART A & B MEDICARE PART A & B MEDICARE PART A & B MEDICARE SUPPLEMENT MEDICARE PART A & B MEDICARE PART A & B MEDICARE SUPPLEMENT MEDICARE PART A & B Member Subscriber Plan / Payer (Ef fective 2008-Present) Name:Ronnie Garcia Member ID:[id number] Relation to Subscriber:Self Name:Ronnie Garcia Subscriber ID:[id number] Payer ID:[id number] Group ID:Not on file Type:Medicare Address: [employer] [address] [place] [phone] [facility] MEDICARE SUPPLEMENT ([address] [address] MEDICARE PART A & B [facility] MEDICARE SUPPLEMENT Care Teams Wharfinger Chief Relationship Specialty Start Date End Date Ronnie Piper PA [address] [place] [phone] [email or web address] PCP - General Physician Vacuum Closing Machine Operator 04/14/25 Additional Source Comments The information contained in this document represents components of the legal health record. It is not the complete legal health record.[facility]
--- OUTSIDE RECORDS SUMMARY | 2025-08-28 14:45 | XMS_ITS | Encounter Summary ---
Author Organization [facility] Address [address] [facility] [address] [place] [address] Phone Care Team Providers Care Table Worker Name Role Phone Unknown, Unknown Primary Care Provider Ronnie Márquez Primary Care Provider [phone]- [phone] Encounter Details Date Type Department Care Team (Late st Contact Info) Description 05/13/2018 Transcribe Orders [facility] Specimen Processing [address] [place] [address] Pascual Lawson MD [address] [place] [id number] [email or web address] Diagnosis unknown (Primary Dx) Social History Tobacco Use Types Packs/Day Years Used Date Smoking Tobacco: Never Assessed Sex and Gender Information Value Date Recorded Sex Assigned at Not on file Legal Sex Male 10:10 PM EDT Gender Identity Not on file Sexual Orientation Not on file documented as of this encounter Plan of Treatment Not on file documented as of this encounter Results * (ABNORMAL) Urine culture (05/13/2018 4:47 PM EDT) Specimen Source/ Description URINE URINE [facility] Special Requests None [facility] GRAM STAIN Rare GRAM NEGATIVE RODS [facility] Culture/Test >100,000 colony forming units per ml ENTEROBACTER CLOACAE COMPLEX(A) [facility] Report Status 05/17/2018 FINAL [facility] ORGANISM ENTEROBACTER CLOACAE COMPLEX [facility] Urine (Urine) 05/13/2018 4:4 7 PM EDT 05/13/2018 4:50 PM EDT Narrative Organism Antibiotic Method Susceptibility Enterobacter cloacae complex Amoxicillin-clavulanate [facility] METHOD >=32: Resistant Enterobacter cloacae complex Cefazolin [facility] METHOD >=64: Resistant Enterobacter cloacae complex Cefepime [facility] METHOD <=1: Susceptible Enterobacter cloacae complex Ceftazidime [facility] METHOD <=1: Susceptible Enterobacter cloacae complex Ceftriaxone [facility] METHOD <=1: Susceptible Enterobacter cloacae complex Ciprofloxacin [facility] METHOD <=0.25: Susceptible Enterobacter cloacae complex Gentamicin [facility] METHOD <=1: Susceptible Enterobacter cloacae complex Levofloxacin [facility] METHOD <=0.12: Susceptible Enterobacter cloacae complex Nitrofurantoin [facility] METHOD 64: Intermediate Enterobacter cloacae complex Piperacillin-tazobactam [facility] METHOD <=4: Susceptible Enterobacter cloacae complex Trimethoprim/sulfamethoxa zole [facility] METHOD <=20: Susceptible Comment:>100,000 colony form ing units per ml ENTEROBACTER CLOACAE COMPLEX us Pascual Lawson MD MICROBIOLOGY - GENERAL ORDER RANJEET Final Result Performing Organization Address City/State/[facility] [[email or web address] Co de Phone Number [address] [address] documented in this encounter Visit Diagnoses Diagnosis Diagnosis unknown- Primary documented in this encounter Care Teams Table Worker Relationship Specialty Start Date End Date Unknown, Unknown, PCP - General 05/13/18 04/13/25 Ronnie Piper PA [address] [place] [phone] [email or web address] PCP - General Physician Web Merchandiser 04/14/25 documented as of this encounter Additional Source Comments The information contained in this document represents components of the legal health record. It is not the complete legal health record.[facility]
== END 2025-08-28 12:12 | disposition home or self-care (01) ==
LOC: HO.HKA 11:47
PROVIDERS: Visit Provider Internal Medicine Hypertension Specialist
DX: E87.5 Hyperkalemia (principal); I12.9 Hypertensive chronic kidney disease with stage 1 through stage 4 chronic kidney disease, or unspecified chronic kidney disease; N18.9 Chronic kidney disease, unspecified; R60.9 Edema, unspecified; D64.9 Anemia, unspecified
CPT/HCPCS: 99214

== ENCOUNTER → 2025-08-28 11:46 | Outpatient (BNVA) | payer MEDICARE, OTHER, SELFPAY | PROVIDERS: Visit Provider Internal Medicine Hypertension Specialist | DX: I12.9 Hypertensive chronic kidney disease with stage 1 through stage 4 chronic kidney disease, or unspecified chronic kidney disease (principal); E11.22 Type 2 diabetes mellitus with diabetic chronic kidney disease; N18.4 Chronic kidney disease, stage 4 (severe); Z79.84 Long term (current) use of oral hypoglycemic drugs; E78.5 Hyperlipidemia, unspecified; R60.9 Edema, unspecified; D64.9 Anemia, unspecified | CPT/HCPCS: 99212 ==

== ENCOUNTER 2025-10-09 13:19 | Outpatient (AMB) | payer MEDICARE, OTHER, SELFPAY ==
[2025-10-09 13:25] VITALS: BP 152/70; PULSE 91; O2SAT 96; BMI 27.4
--- NOTE | 2025-10-09 13:25 | HO.NEPHOV ---
Vital Signs 10/09/25 13:25 10/09/25 13:42 Height 5 ft 10 in Weight 191 lb BMI 27.4 BP 152/70 H 130/70 Blood Pressure Location Rt brachial Rt brachial Position Sitting Sitting Pulse 91 Pulse Source Pulse Oximeter Pulse Oximetry (%) 96 Oxygen Delivery Method Room Air Intake Visit Reasons: 6 MO FU-Conf [employer] Required: No Accompanied by: Self / Same As Patient Allergies prozac Allergy (Severe, Uncoded 11/06/23 13:13) Anxiety Medication List - Last Reconciled 10/09/25 by Isael Guzman MD acetaminophen-codeine 300-30 mg 2 tabs PO DAILY PRN albuterol sulfate 90 mcg/actuation inhalation alprazolam 0.5 - 1 mg PO DAILY PRN amlodipine 10 mg PO DAILY apixaban (Eliquis) 2.5 mg PO BID blood sugar diagnostic (FreeStyle Lite Strips) As directed buspirone 10 mg PO TID dorzolamide-timolol 22.3-6.8 mg/mL ophthalmic (eye) escitalopram oxalate 20 mg PO DAILY famotidine 20 mg PO DAILY finasteride 5 mg PO DAILY fluticasone propion-salmeterol 100-50 mcg/dose 1 ea inhalation BID furosemide 20 mg PO DAILY gabapentin 200 mg PO TID glipizide ER 10 mg PO DAILY hydralazine 25 mg PO BID linagliptin (Tradjenta) 5 mg PO DAILY losartan 25 mg PO DAILY metformin 1,000 mg PO BID simvastatin 20 mg PO BEDTIME tamsulosin 0.4 mg PO DAILY trazodone 150 mg PO BEDTIME HPI Comments Details: History of Present Illness The patient is an 80-year-old male presenting for a follow-up visit for management of chronic kidney disease (CKD). His kidney function is stable, with a recent creatinine of 1.29 and normal potassium levels. His hemoglobin was 12.5, which is stable compared to 12.8 in July. The patient has a history of atonic bladder requiring self-catheterization. He had a urinary tract infection a few months ago which has resolved, and he is not currently on any antibiotics. He is prescribed furosemide but admits to not taking it daily to avoid urinary incontinence when he needs to go out. The patient has a long-standing history of asthma and reports a recent increase in asthma attacks, which he believes are triggered by a silver silt substance coming through the heating and air conditioning in his apartment. He uses albuterol and Advair inhalers, which he finds effective. He has a new primary care physician, Dr. Nicolle Martínez, but has not yet discussed the recent asthma exacerbations with her. He reports significant stress due to aging, feeling disabled, and from recent negative interactions, which he believes elevates his blood pressure. He also noted a past issue with a former primary care provider where he was overdosed on a blood thinner, with an INR of 9.5. Results - Labs: - Creatinine: 1.29 mg/dL - Potassium: Normal - Hemoglobin: 12.5 g/dL COUNTS INCLUDE 234 BEDS AT [facility] Medical History Retinal detachment Urinary tract infection Sleep apnea Pulmonary embolism Hyperlipidemia Osteoarthrosis BPH w/o urinary obs/LUTS Hx of pulmonary embolus Glaucoma Essential hypertension Esophageal reflux Dysthymia Diabetes mellitus without complication, without long-term current use of insulin Depression Chronic kidney disease (CKD) Cataract Asthma Anxiety Anemia Surgical History History of total hip arthroplasty H/O hernia repair Physical Exam Exam Exam: Physical Exam General: Awake. Comfortable. HENT: Neck supple. Mucosa moist. Pulmonary: Difficulty breathing noted. History of asthma. Uses albuterol and Advair inhalers. Cardiology: Heart S1-S2 heard. No gallop. Abdomen: Soft. Non tender. Bowel sounds normal. Neurologic: No involuntary movements. No myoclonus. Extremities: No edema. No rash. Vital Signs: Last Vital Signs Pulse 91 10/09/25 13:25 BP 130/70 10/09/25 13:42 Pulse Ox 96 10/09/25 13:25 Oxygen Delivery Method Room Air 10/09/25 13:25 BMI result Body Mass Index 27.4 Assessment & Plan Assessment & Plan (1) Hyperkalemia: Code(s): E87.5 - Hyperkalemia Category: Medical (2) Chronic kidney disease (CKD): Comment: Renal function at baseline Code(s): N18.9 - Chronic kidney disease, unspecified Category: Medical Plan: Ronnie has stage IV CKD. He has history of atonic bladder requiring self catheterization. Goal is to slow the progression of renal disease He should catheterize at least 3-4 times daily and avoid urinary retention. Continue to avoid nephrotoxic agents including NSAIDs. Will monitor renal function closely.- labs ordered (3) Essential hypertension: Code(s): I10 - Essential (primary) hypertension Category: Medical Plan: Blood pressure is well controlled. He had bradycardia. Therefore I stopped labetalol 100 mg b.i.d. in Aug 2023 BP better controlled after increasing Amlodipine (4) Edema: Code(s): R60.9 - Edema, unspecified Category: Medical Plan: Most likely due to the use of calcium channel blockers. Fluid status seems acceptable. He is on Lasix and we will continue the same. . . (5) Anemia: Code(s): D64.9 - Anemia, unspecified Category: Medical Plan: Stable Hgb !2.5 Plan No changes were made today Orders: Orders Basic Metabolic Panel 6 Months N18.9 - Chronic kidney disease, unspecified Complete Blood Count no Diff Today N18.9 - Chronic kidney disease, unspecified Coding Level of Care Code Est Pt Level 4 (27324) Diagnoses Hyperkalemia E87.5 Chronic kidney disease (CKD) N18.9 Essential hypertension I10 Edema R60.9 Anemia D64.9
[2025-10-09 13:42] VITALS: BP 130/70
== END 2025-10-09 13:50 | disposition home or self-care (01) ==
LOC: HO.HKA 13:20
PROVIDERS: Visit Provider Internal Medicine Hypertension Specialist
DX: E87.5 Hyperkalemia (principal); I12.9 Hypertensive chronic kidney disease with stage 1 through stage 4 chronic kidney disease, or unspecified chronic kidney disease; N18.9 Chronic kidney disease, unspecified; D63.1 Anemia in chronic kidney disease; R60.9 Edema, unspecified
CPT/HCPCS: 99214

== ENCOUNTER → 2025-10-09 13:19 | Outpatient (BNVA) | payer MEDICARE, OTHER, SELFPAY | PROVIDERS: Visit Provider Internal Medicine Hypertension Specialist | DX: I10 Essential (primary) hypertension (principal); R60.9 Edema, unspecified; D64.9 Anemia, unspecified; N18.4 Chronic kidney disease, stage 4 (severe); E87.5 Hyperkalemia | CPT/HCPCS: 99212 ==